=== PATIENT | male | born 1990 ===

== ENCOUNTER 2022-03-24 17:46 | Inpatient (IN) ==
[2022-03-24] MEDS ORDERED: haloperidoL 5 MG TABLET PO PRN (17:54)
[2022-03-24] MEDS ORDERED: *HR* LORazepam 1 MG TABLET PO PRN (17:54)
[2022-03-24] MEDS ORDERED: Mag Hydrox/Al Hydrox/Simeth 30 ML UDC PO PRN (17:54)
[2022-03-24] MEDS ORDERED: *HR* LORazepam 2 MG/ML VIAL IM PRN (17:54)
[2022-03-24] MEDS ORDERED: MOM Conc 10 ML UD.LIQ PO PRN (17:54)
[2022-03-24] MEDS ORDERED: Haloperidol Lactate 5 MG/ML VIAL IM PRN (17:54)
[2022-03-24] MEDS ORDERED: traZODone 50 MG TABLET PO PRN (17:54)
[2022-03-24] MEDS ORDERED: Ibuprofen 400 MG TABLET PO PRN (17:54)
[2022-03-24] MEDS ORDERED: hydrOXYzine pamoate 25 MG CAPSULE PO PRN (17:54)
[2022-03-24] MEDS: Gabapentin 400 MG CAPSULE PO SCH (20:55)
[2022-03-24] MEDS: Propranolol LA (24 HR) 60 MG CAP.SA.24H PO SCH (20:55)
[2022-03-24] MEDS: traZODone 50 MG TABLET PO SCH (20:55)
[2022-03-25 08:19] VITALS: O2SAT 96
[2022-03-25] MEDS: Gabapentin 400 MG CAPSULE PO SCH ×3 (08:45→20:04)
[2022-03-25] MEDS ORDERED: amLODIPine 5 MG TABLET PO SCH (09:00)
[2022-03-25] MEDS ORDERED: hydroCHLOROthiazide 25 MG TABLET PO SCH (09:00)
[2022-03-25] MEDS ORDERED: lisinopriL 20 MG TABLET PO SCH (09:00)
[2022-03-25] MEDS ORDERED: Nicotine 21 MG PATCH.TD24 TD SCH (11:45)
[2022-03-25] MEDS ORDERED: Ibuprofen 800 MG TABLET PO PRN (11:58)
[2022-03-25] MEDS ORDERED: QUEtiapine Fumarate 100 MG TABLET PO PRN (14:39)
[2022-03-25 19:51] VITALS: BP 133/88; PULSE 79; TEMP 98.3
[2022-03-25] MEDS: Propranolol LA (24 HR) 60 MG CAP.SA.24H PO SCH (20:04)
[2022-03-25] MEDS: traZODone 50 MG TABLET PO SCH (20:04)
[2022-03-25] MEDS ORDERED: ARIPiprazole 5 MG TABLET PO SCH (21:00)
== END 2022-03-25 23:59 | disposition other institution (70) | DRG 754 ==
LOC: 1ANU 17:46
PROVIDERS: ADMIT Psychiatry & Neurology Psychiatry; ATTEND Psychiatry & Neurology Psychiatry